=== PATIENT | female | born 1935 | race Caucasian/White ===

== ENCOUNTER 2016-04-18 07:13 | Outpatient (CLI) | payer MEDICARE, OTHER ==
[2016-04-18 08:00] LABS: #Basophils 0.1 thou/uL (0.0-0.2); #Eosinphils 0.3 thou/uL (0.0-0.7); #Lymphocytes 1.7 thou/uL (1.20-3.40); #Monocytes 0.6 thou/uL (0.11-0.59); #Neutrophils 3.9 thou/uL (1.40-6.50); %Basophils 1.4 % (0.0-1.0); %Eosinophils 4.2 % (0.0-10.0); %Lymphocytes 26.6 % (21.0-51.0); %Monocytes 8.5 % (0.0-10.0); %Neutrophils 59.3 % (42.0-75.0); Hemoglobin 13.7 g/dL (12.0-16.0); Mean Corpuscular HGB CONC 34.1 g/dL (32.0-36.0); Mean Corpuscular Hemoglobin 32.6 pg (27.0-31.0); Mean Corpuscular Volume 95.6 fl (81.0-99.0); Mean Platelet Volume 7.7 fL (7.4-10.4); Platelet Count 231 thou/uL (130-400); RBC Distribution Width 11.6 % (11.5-14.5); Red Blood Cell (RBC) Count 4.18 mill/uL (4.20-5.40); White Blood Cell (WBC) Count 6.5 thou/uL (4.8-10.8)
[2016-04-18 09:18] LABS: ALT (SGPT) 24 U/L (0-55); AST (SGOT) 26 U/L (5-34); Albumin 4.3 g/dL (3.4-4.8); Alkaline Phosphatase 52 U/L (40-150); Anion Gap 15 mmol/L (10-20); BUN (Urea Nitrogen) 13 mg/dL (9.8-20.1); Bilirubin, Direct 0.3 mg/dL (0.1-0.3); Bilirubin, Total 0.7 mg/dL (0.2-1.2); Calc. Creatinine Clearance 0 mL/min (70-130); Calcium 9.8 mg/dL (7.8-10.44); Carbon Dioxide 27 mmol/L (23-31); Cardiac Risk 3.1 (Less than 4.5); Chloride 102 mmol/L (98-107); Cholesterol 156 mg/dL (< 200 Desired); Estimated GFR-MDRD 59; Glucose 109 mg/dL (83-110); HDL Cholesterol 51 mg/dL (>60 Neg Risk); LDL Cholesterol, Calculated 78 mg/dL; Potassium 4.3 mmol/L (3.5-5.1); Protein, Total 6.6 g/dL (5.8-8.1); Sodium 140 mmol/L (136-145); Triglycerides 136 mg/dL (Less than 150)
== END 2016-04-18 07:14 ==
LOC: MADLABBHPM 07:13
PROVIDERS: ATTEND Family Medicine
DX: E78.5 Hyperlipidemia, unspecified (principal); I12.9 Hypertensive chronic kidney disease with stage 1 through stage 4 chronic kidney disease, or unspecified chronic kidney disease; N18.2 Chronic kidney disease, stage 2 (mild); M81.0 Age-related osteoporosis without current pathological fracture
CPT/HCPCS: 36415; 80048; 80061; 80076; 84443; 85025

== ENCOUNTER 2016-07-13 08:23 | Outpatient (CLI) | payer MEDICARE, OTHER ==
[2016-07-13 09:24] LABS: ALT (SGPT) 26 U/L (0-55); AST (SGOT) 30 U/L (5-34); Albumin 4.2 g/dL (3.4-4.8); Alkaline Phosphatase 57 U/L (40-150); Anion Gap 15 mmol/L (10-20); BUN (Urea Nitrogen) 11 mg/dL (9.8-20.1); Bilirubin, Direct 0.2 mg/dL (0.1-0.3); Bilirubin, Total 0.6 mg/dL (0.2-1.2); Calc. Creatinine Clearance 0 mL/min (70-130); Calcium 10.3 mg/dL (7.8-10.44); Carbon Dioxide 28 mmol/L (23-31); Cardiac Risk 3.6 (Less than 4.5); Chloride 102 mmol/L (98-107); Cholesterol 142 mg/dL (< 200 Desired); Estimated GFR-MDRD 66; Glucose 116 mg/dL (83-110); HDL Cholesterol 40 mg/dL (>60 Neg Risk); LDL Cholesterol, Calculated 73 mg/dL; Potassium 4.3 mmol/L (3.5-5.1); Protein, Total 6.6 g/dL (5.8-8.1); Sodium 141 mmol/L (136-145); Triglycerides 145 mg/dL (Less than 150)
== END 2016-07-13 08:24 ==
LOC: MADLABBHPM 08:23
PROVIDERS: ATTEND Family Medicine
DX: E78.5 Hyperlipidemia, unspecified (principal); N18.2 Chronic kidney disease, stage 2 (mild)
CPT/HCPCS: 36415; 80048; 80061; 80076

== ENCOUNTER 2016-10-12 08:50 | Outpatient (CLI) | payer MEDICARE, OTHER ==
[2016-10-12 14:34] LABS: Hemoglobin 13.3 g/dL (12.0-16.0); Mean Corpuscular Volume 96.3 fL (81.0-99.0); Red Blood Cell (RBC) Count 4.14 mill/uL (4.20-5.40)
[2016-10-12 14:35] LABS: %Basophils 1.4 % (0.0-1.0); %Lymphocytes 24.1 % (21.0-51.0); %Monocytes 8.9 % (0.0-10.0); %Neutrophils 60.8 % (42.0-75.0); Mean Corpuscular HGB CONC 33.2 g/dL (32.0-36.0); Mean Platelet Volume 8.1 fL (7.4-10.4); Platelet Count 206 thou/uL (130-400); RBC Distribution Width 11.7 % (11.5-14.5)
[2016-10-12 14:37] LABS: Anion Gap 14 mmol/L (10-20); BUN (Urea Nitrogen) 14 mg/dL (9.8-20.1); Bilirubin, Direct 0.2 mg/dL (0.1-0.3); Bilirubin, Total 0.6 mg/dL (0.2-1.2); Calc. Creatinine Clearance 0 mL/min (70-130); Calcium 9.8 mg/dL (7.8-10.44); Carbon Dioxide 27 mmol/L (23-31); Chloride 102 mmol/L (98-107); Estimated GFR-MDRD 61; Glucose 114 mg/dL (83-110); Sodium 139 mmol/L (136-145)
[2016-10-12 14:38] LABS: ALT (SGPT) 32 U/L (8-55); AST (SGOT) 35 U/L (5-34); Albumin 4.2 g/dL (3.4-4.8); Alkaline Phosphatase 55 U/L (40-150); Cardiac Risk 3.5 (Less than 4.5); Cholesterol 152 mg/dL (< 200 Desired); HDL Cholesterol 43 mg/dL (>60 Neg Risk); LDL Cholesterol, Calculated 79 mg/dL; Triglycerides 152 mg/dL (Less than 150)
== END 2016-10-12 08:51 | disposition home or self-care (01) ==
LOC: MADLABBHPM 08:50
PROVIDERS: ATTEND Family Medicine
DX: I10 Essential (primary) hypertension (principal); E78.5 Hyperlipidemia, unspecified
CPT/HCPCS: 36415; 80048; 80061; 80076; 85025

== ENCOUNTER 2016-10-20 14:38 | Outpatient (CLI) | payer MEDICARE, OTHER ==
[2016-10-21 16:53] LABS: Iron 91 ug/dL (50-170); Iron Binding Capacity, Total 325 mcg/dL (265-497)
== END 2016-10-20 14:39 | disposition home or self-care (01) ==
LOC: MADLABBHPM 14:38
PROVIDERS: ATTEND Family Medicine
DX: Z83.49 Family history of other endocrine, nutritional and metabolic diseases (principal)
CPT/HCPCS: 36415; 82728; 83540; 83550

== ENCOUNTER 2016-11-25 15:46 | Outpatient (CLI) | payer MEDICARE, OTHER ==
[2016-11-25 16:17] LABS: ALT (SGPT) 30 U/L (8-55); AST (SGOT) 31 U/L (5-34); Albumin 4.2 g/dL (3.4-4.8); Alkaline Phosphatase 59 U/L (40-150); Anion Gap 14 mmol/L (10-20); BUN (Urea Nitrogen) 15 mg/dL (9.8-20.1); Bilirubin, Total 0.4 mg/dL (0.2-1.2); Calc. Creatinine Clearance 0 mL/min (70-130); Calcium 9.6 mg/dL (7.8-10.44); Carbon Dioxide 27 mmol/L (23-31); Chloride 99 mmol/L (98-107); Estimated GFR-MDRD 60; Globulin 2.6 g/dL (2.4-3.5); Glucose 131 mg/dL (83-110); Potassium 3.9 mmol/L (3.5-5.1); Protein, Total 6.8 g/dL (6.0-8.3); Sodium 136 mmol/L (136-145)
== END 2016-11-25 15:47 | disposition home or self-care (01) ==
LOC: MADLAB 15:46
PROVIDERS: ATTEND Internal Medicine Rheumatology
DX: M81.0 Age-related osteoporosis without current pathological fracture (principal)
CPT/HCPCS: 36415; 80053; 82306

== ENCOUNTER 2017-07-11 08:14 | Outpatient (CLI) | payer MEDICARE, OTHER ==
[2017-07-11 10:26] LABS: ALT (SGPT) 22 U/L (8-55); AST (SGOT) 23 U/L (5-34); Albumin 4.2 g/dL (3.4-4.8); Alkaline Phosphatase 48 U/L (40-150); Anion Gap 17 mmol/L (10-20); BUN (Urea Nitrogen) 13 mg/dL (9.8-20.1); Bilirubin, Direct 0.2 mg/dL (0.1-0.3); Bilirubin, Total 0.5 mg/dL (0.2-1.2); Calc. Creatinine Clearance 0 mL/min (70-130); Calcium 9.7 mg/dL (7.8-10.44); Carbon Dioxide 27 mmol/L (23-31); Cardiac Risk 3.6 (Less than 4.5); Chloride 101 mmol/L (98-107); Cholesterol 148 mg/dl (< 200 Desired); Estimated GFR-MDRD 65; Glucose 108 mg/dL (83-110); HDL Cholesterol 41 mg/dL (>60 Neg Risk); LDL Cholesterol, Calculated 85 mg/dL; Potassium 4.2 mmol/L (3.5-5.1); Protein, Total 6.3 g/dL (6.0-8.3); Sodium 141 mmol/L (136-145); Triglycerides 110 mg/dL (Less than 150)
== END 2017-07-11 08:15 | disposition home or self-care (01) ==
LOC: MADLAB 08:14
PROVIDERS: ATTEND Family Medicine
DX: E78.5 Hyperlipidemia, unspecified (principal); I10 Essential (primary) hypertension
CPT/HCPCS: 36415; 80048; 80061; 80076

== ENCOUNTER 2019-03-07 12:43 | Outpatient (CLI) | payer MEDICARE, OTHER ==
--- NOTE | 2019-03-07 13:33 | RAD ---
XR Hip Rt 2-3 View HISTORY: Chronic right hip pain FINDINGS: No fracture or dislocation is identified. Moderate degenerative changes are present.
== END 2019-03-07 12:44 | disposition home or self-care (01) ==
LOC: MADRAD 12:43
PROVIDERS: ATTEND Anesthesiology Pain Medicine
DX: M16.11 Unilateral primary osteoarthritis, right hip (principal)

== ENCOUNTER → 2019-03-07 | Day surgery (SDC) | payer MEDICARE, OTHER ==
[~2019-03-07] MED LIST: Denosumab 60 MG/ML ONE
== END ==
LOC: MADER/OP 13:29
PROVIDERS: ATTEND Internal Medicine Endocrinology, Diabetes & Metabolism
DX: M81.0 Age-related osteoporosis without current pathological fracture (principal)
CPT/HCPCS: J0897